=== PATIENT | male | born 1995 ===

== ENCOUNTER 2019-03-03 10:52 | Emergency (ER) | payer SELFPAY ==
[2019-03-03 10:57] VITALS: BP 132/81; PULSE 61; RESP 18; TEMP 98.1; O2SAT 98
[2019-03-03] MEDS ORDERED: Amoxicillin-Clav 875-125 mg Tab PO STA (11:29)
--- NOTE | 2019-03-03 11:44 | C.PDOC ---
History Of Present Illness 24 y/o male presents to the ED c/o nasal congestion for one week. He reports associated with yellow (occasionally green) mucoid drainage, sore throat and subjective fever. Patient states he has been taking Ibuprofen with little relief, as well as Benadryl for his seasonal allergies. He denies headache, cough, shortness of breath, nausea, and vomiting. Time Seen by Provider: 03/03/19 11:12 Chief Complaint (Nursing): ENT Problem History Per: Patient History/Exam Limitations: None Onset/Duration Of Symptoms: Other (one week ) Current Symptoms Are (Timing): Still Present Past Medical History Reviewed: Historical Data, Nursing Documentation, Vital Signs Vital Signs: Last Vital Signs Temp 98.1 F 03/03/19 10:55 Pulse 61 03/03/19 10:55 Resp 18 03/03/19 10:55 BP 132/81 03/03/19 10:55 Pulse Ox 98 03/03/19 10:55 Primary Care Provider: FAMILY PROVIDER,NO - Medical History PMH: No Chronic Diseases Surgical History: Appendectomy Family History: States: Unknown Family Hx - Social History Hx Alcohol Use: No Hx Substance Use: No - Immunization History Hx Tetanus Toxoid Vaccination: No Hx Influenza Vaccination: No Hx Pneumococcal Vaccination: No Review Of Systems Constitutional: Positive for: Fever (subjective ) ENT: Positive for: Nose Discharge, Nose Congestion, Throat Pain Respiratory: Negative for: Cough, Shortness of Breath Gastrointestinal: Negative for: Nausea, Vomiting Neurological: Negative for: Headache Physical Exam - Physical Exam Appears: Non-toxic, No Acute Distress Skin: Normal Color, Warm, Dry Head: Atraumatic, Normacephalic Eye(s): bilateral: Normal Inspection Ear(s): Bilateral: Normal Nose: Other (severe turbinate hypertrophy with mucopurulent drainage in right nare, moderate turbinate hypertrophy in left nare. ) Oral Mucosa: Moist Throat: Normal, No Erythema, No Exudate Neck: Supple ( ) Chest: Symmetrical, No Deformity, No Tenderness Cardiovascular: Rhythm Regular, No Murmur Respiratory: Normal Breath Sounds, No Rales, No Rhonchi, No Wheezing Extremity: Normal ROM, Capillary Refill (less than 2 seconds ) Neurological/Psych: Oriented x3, Normal Speech, Normal Cognition ED Course And Treatment O2 Sat by Pulse Oximetry: 98 (on RA) Pulse Ox Interpretation: Normal Medical Decision Making Medical Decision Making: Impression: 24 year old male with nasal congestion, drainage, sore throat and subjective fever Plan: * Augmentin PO * Sudafed PO * reassess and disposition Progress: Augmentin PO and Sudafed PO given. On reassessment, patient is resting comfortably, showing no signs of distress and is stable for discharge. Patient is advised to f/u with his PMD within 1-2 days for further evaluation. Disposition Counseled Patient/Family Regarding: Diagnosis, Need For Followup, Rx Given - Disposition Referrals: [facility] [Outside] Disposition: HOME/ ROUTINE Disposition Time: 11:39 Condition: IMPROVED Additional Instructions: Continue Augment and Sudafed as prescribed start Claritin and Flonase as needed for allergies Rest and Hydration follow up with PMD in 1-2 days Return to the ED if symptoms worsen Prescriptions: Amoxicillin/Clavulanate [Augmentin 875 MG-125 MG] 1 tab PO BID #20 tab Cetirizine HCl [Zyrtec] 10 mg PO DAILY PRN #30 tab.rapdis PRN Reason: Allergy Symptoms Fluticasone Nasal [Flonase] 1 spr NS BID PRN #1 bottle PRN Reason: Nasal Congestion Pseudoephedrine HCl [Sudafed 24 Hour] 240 mg PO DAILY PRN #10 tab PRN Reason: Sinus Symptoms Instructions: Seasonal Allergies (DC), Sinusitis, Adult (DC) Forms: [facility] (Bel[place]ian), Work Excuse - Clinical Impression Clinical Impression: Seasonal allergies, Sinusitis nasal - PA / FINANCE ASSISTANT / Resident Statement MD/DO has reviewed & agrees with the documentation as recorded. - Scribe Statement The provider has reviewed the documentation as recorded by the Scribe (Rashida tanner) All medical record entries made by the Scribe were at my direction and personally dictated by me. I have reviewed the chart and agree that the record accurately reflects my personal performance of the history, physical exam, medical decision making, and the department course for this patient. I have also personally directed, reviewed, and agree with the discharge instructions and disposition.
[2019-03-03] MEDS ORDERED: Amoxicillin-Clav 875-125 mg Tab PO ONE (11:45)
== END 2019-03-03 11:56 | disposition home or self-care (01) ==
LOC: C.ER 10:52
DX: J30.2 Other seasonal allergic rhinitis (principal); J32.9 Chronic sinusitis, unspecified